=== PATIENT | male | born 1965 | race African-American/Black ===

== ENCOUNTER 2024-12-09 06:16 | Emergency (ER) | payer MEDICARE, MEDICAID ==
[~2024-12-09] VITALS: Ht 175.3 cm; Wt 150.0 kg
[2024-12-09 06:24] VITALS: O2SAT 96
[2024-12-09] MEDS ORDERED: FUROSEMIDE 40MG/4ML VIAL IVP ONE (08:15)
[2024-12-09] MEDS ORDERED: ENOXAPARIN 40MG/0.4ML SYR SUBCUT SCH (08:30)
[2024-12-09] MEDS ORDERED: ONDANSETRON HCL 4MG/2ML INJ IV PRN (08:30)
[2024-12-09] MEDS ORDERED: ACETAMINOPHEN 325MG TABLET PO PRN ×2 (08:30)
[2024-12-09] MEDS ORDERED: MAGNESIUM/ALUMINUM HYDROXIDE/SIMETHICONE 30ML UDC PO PRN (08:30)
[2024-12-09] MEDS ORDERED: IPRATROPIUM/ALBUTEROL 0.5-3(2.5)MG/3ML NEB HHN PRN (08:30)
[2024-12-09] MEDS ORDERED: CLONIDINE 0.1MG TABLET PO PRN (08:30)
[2024-12-09] MEDS ORDERED: GUAIFENESIN 200MG/10ML SUGAR FREE UDC PO PRN (08:30)
[2024-12-09] MEDS ORDERED: DOCUSATE SODIUM 100MG CAPSULE PO PRN (08:30)
[2024-12-09] MEDS ORDERED: FUROSEMIDE 40MG/4ML VIAL IVP SCH (09:00)
[2024-12-09] MEDS ORDERED: NITROGLYCERIN 0.4MG TABLET SL SL PRN (09:45)
[2024-12-09] MEDS ORDERED: ASPIRIN 81MG TABLET PO SCH (10:00)
[2024-12-09] MEDS ORDERED: SPIRONOLACTONE 12.5MG TABLET PO SCH (10:00)
[2024-12-09] MEDS ORDERED: LOSARTAN 25 MG TABLET PO SCH (10:00)
[2024-12-09] MEDS ORDERED: EMPAGLIFLOZIN 25MG TABLET PO SCH (10:00)
[2024-12-09 10:44] VITALS: BP 131/86; PULSE 82; RESP 15; TEMP 37; O2SAT 96
== END 2024-12-09 10:54 | disposition left against medical advice (07) ==
LOC: ER 06:16 → EDBEDREQTM 08:01 → EDBEDREQ 08:01 → ER 10:54
DX: I11.0 Hypertensive heart disease with heart failure (principal); I50.9 Heart failure, unspecified; Z88.0 Allergy status to penicillin; Z98.890 Other specified postprocedural states; Z86.73 Personal history of transient ischemic attack (TIA), and cerebral infarction without residual deficits; Z79.899 Other long term (current) drug therapy; Z90.49 Acquired absence of other specified parts of digestive tract
CPT/HCPCS: 99283; 71045; 93005; J1940; 99285; A4606